=== PATIENT | female | born 1990 | race African-American/Black ===

== ENCOUNTER 2022-02-22 06:34 | Emergency (ER) | payer MEDICAID ==
[~2022-02-22] VITALS: Ht 172.7 cm; Wt 90.7 kg
--- NOTE | 2022-02-22 06:34 | NUR ---
PT BIB [facility], PREBOOK. TAKEN TO CHAIR
--- NOTE | 2022-02-22 06:48 | NUR ---
DR MENA EXAMINING PT
[2022-02-22 06:53] VITALS: BP 155/71
--- NOTE | 2022-02-22 07:20 | NUR ---
NO NURSING CARE RENDERED- Patient discharged with v/s stable. Written and verbal after care instructions given and explained. Patient alert, oriented and verbalized understanding of instructions. Police with in custody. All questions addressed prior to discharge. ID band removed. Patient advised to follow up with [facility]D.NO Rx given. Patient educated on indication of medication including possible reaction and side effects. Opportunity to ask questions provided and answered.
[2022-02-22 07:21] VITALS: BP 145/70
== END 2022-02-22 07:21 ==
LOC: MED 06:34
DX: T14.90XA Injury, unspecified, initial encounter (principal); V89.2XXA Person injured in unspecified motor-vehicle accident, traffic, initial encounter; Y93.89 Activity, other specified; Y92.89 Other specified places as the place of occurrence of the external cause; Y99.8 Other external cause status
CPT/HCPCS: 99283